=== PATIENT | male | born 1995 | race Asian ===

== ENCOUNTER 2022-08-02 01:53 | Emergency (ER) | payer SELFPAY ==
[~2022-08-02] VITALS: Ht 182.9 cm; Wt 122.0 kg
[2022-08-02 02:00] VITALS: BP 135/92; TEMP 98.3
[2022-08-02 03:10] VITALS: PULSE 88
== END 2022-08-02 03:30 | disposition home or self-care (01) ==
LOC: COL.ER 01:53
DX: K64.4 Residual hemorrhoidal skin tags (principal)